=== PATIENT | female | born 1995 | race Hispanic/Latino ===

== ENCOUNTER 2017-10-12 11:01 | Emergency (ER) | payer BC, OTHER | END 2017-10-12 12:06 | disposition home or self-care (01) | LOC: EDH 11:01 | DX: S00.83XA Contusion of other part of head, initial encounter (principal); R42 Dizziness and giddiness; Z98.890 Other specified postprocedural states; W18.39XA Other fall on same level, initial encounter; Y93.89 Activity, other specified; Y92.098 Other place in other non-institutional residence as the place of occurrence of the external cause; Y99.8 Other external cause status | CPT/HCPCS: 70450 ==

== ENCOUNTER 2019-12-04 09:28 | Emergency (ER) | payer BC ==
[2019-12-04] MEDS ORDERED: ACETAMINOPHEN EXTRA STRENGTH 500 MG TABLET ONE (10:05)
[2019-12-04] MEDS ORDERED: ONDANSETRON ODT 4 MG TAB ONE (10:40)
[2019-12-04] MEDS ORDERED: OCTYL 2-CYANOACRYLATE 1 EACH TP ONE (10:49)
[2019-12-04] MEDS ORDERED: TETANUS/DIPHTHERIA TOXOID [ADULT] 0.5 ML VIAL IM ONE (11:48)
[2019-12-04] MEDS ORDERED: NEOMY SULF/BACITRA/POLYMYXIN B 1 EACH PACKET TP ONE (11:53)
[2019-12-04] MEDS ORDERED: CEPHALEXIN 500 MG CAPSULE ONE (11:58)
== END 2019-12-04 12:14 | disposition home or self-care (01) ==
LOC: EDH 09:28
DX: S61.216A Laceration without foreign body of right little finger without damage to nail, initial encounter (principal); I10 Essential (primary) hypertension; Z72.0 Tobacco use; W26.0XXA Contact with knife, initial encounter; Y93.89 Activity, other specified; Y92.039 Unspecified place in apartment as the place of occurrence of the external cause; Y99.8 Other external cause status
CPT/HCPCS: 12001; 12002; 90471; 90714